=== PATIENT | male | born 1970 | race Caucasian/White ===

== ENCOUNTER 2016-05-25 15:29 | Emergency (ER) | payer OTHER ==
[~2016-05-25] VITALS: Ht 167.6 cm; Wt 70.0 kg
[2016-05-25 15:31] VITALS: BP 132/75; PULSE 82; RESP 15; TEMP 97.9; O2SAT 99
[2016-05-25 18:32] LABS: AUTOMATED NEUTROPHIL # 3.9 TH/MM3 (1.8-7.7); BASOPHIL # 0.1 TH/MM3 (0-0.2); BASOPHIL % 0.8 % (0.0-2.0); EOSINOPHIL # 0.2 TH/MM3 (0-0.4); EOSINOPHIL % 2.9 % (0.0-4.0); HEMATOCRIT 42.6 % (39.0-51.0); HEMO FLAGS DIFF FINAL; MEAN CELL VOLUME 89.3 FL (80.0-100.0); MEAN CORPUSCULAR HEMOGLOBIN 30.4 PG (27.0-34.0); MONO % 7.2 % (0.0-8.0); NEUT % 50.1 % (16.0-70.0); PLATELET COUNT 349 TH/MM3 (150-450); RED BLOOD COUNT 4.78 MIL/MM3 (4.50-5.90); RED CELL DISTRIBUTION WIDTH 13.5 % (11.6-17.2); WHITE BLOOD COUNT 7.8 TH/MM3 (4.0-11.0)
--- NOTE | 2016-05-25 18:32 | PD ---
HPI Chief Complaint: Medical Clearance Time Seen by Provider: 18:25 Travel History International Travel<30 days: No Contact w/Intl Traveler<30days: No Traveled to known affect area: No History of Present Illness HPI 46-year-old male that presents to the ED for evaluation of medical clearance. Patient is hard to assess patient appears to be some sort psychosis. Patient main concern is that he might have HIV and he wants HIV testing. Patient for medical records has been here for similar in the past. Per patient he tells me that the reason he is concerned about HIV having AIDS is because he was called a "fag" and someone is telling him that he is "dirty". Per patient he takes no medications. Per patient he went to the health department about 3 months ago he was told that he needed to get testing every 3 months. Patient comes here to get evaluated for this. He also tells me that he believes that he got the HIV because he sure food with another individual that he per patient "I did not washed my hands afterwords as a I did not knew he had HIV ". Patient also goes into tangents about people were attacking him and follow there is actually a documentary on his life because apparently he has some mental knox. In essence most of the story appears to be paranoia. Patient has been here before for similar but he has never had a psychiatric evaluation. Patient denies any homicidal or suicidal ideation to me. He does state that he used to use drugs but he is not specific. Again patient goes into a low tangents. PFSH Past Medical History Cardiovascular Problems: Yes Social History Alcohol Use: Yes (often) Tobacco Use: No Substance Use: Yes (marijuana) Allergies-Medications (Allergen,Severity, Reaction): Coded Allergies: Penicillin (Verified Allergy, Unknown, 05/25/16) Reported Meds & Prescriptions Reported Meds & Active Scripts Active No Active Prescriptions or Reported Medications Review of Systems Except as stated in HPI: all other systems reviewed are Neg Physical Exam Narrative GENERAL: SKIN: Warm and dry. HEAD: Atraumatic. Normocephalic. EYES: Pupils equal and round. No scleral icterus. No injection or drainage. ENT: No nasal bleeding or discharge. Mucous membranes pink and moist. Tongue is midline. No uvula deviation. NECK: Trachea midline. No JVD. CARDIOVASCULAR: Regular rate and rhythm. RESPIRATORY: No accessory muscle use. Clear to auscultation. Breath sounds equal bilaterally. GASTROINTESTINAL: Abdomen soft, non-tender, nondistended. Hepatic and splenic margins not palpable. MUSCULOSKELETAL: Extremities without clubbing, cyanosis, or edema. No obvious deformities. Full range of motion of the upper and lower extremities bilaterally. 2+ pulses bilaterally. NEUROLOGICAL: Awake and alert. No obvious cranial nerve deficits. Motor grossly within normal limits. Five out of 5 muscle strength in the arms and legs. Normal speech. PSYCHIATRIC: psychotic mood and affect; insight and judgment questionable. Data Data Last Documented VS Vital Signs Date Time Temp Pulse Resp B/P Pulse Ox O2 Delivery O2 Flow Rate FiO2 05/25/16 15:31 97.9 82 15 132/75 99 Orders Complete Blood Count With Diff (05/25/16 17:55) Comprehensive Metabolic Panel (05/25/16 17:55) Drug Screen, Random Urine (05/25/16 17:55) Psych Screen (05/25/16 17:55) Thyroid Stimulating Hormone (05/25/16 17:58) Thyroid Stimulating Hormone (05/25/16 17:55) Labs Laboratory Tests Test 05/25/16 18:05 White Blood Count 7.8 TH/MM3 Red Blood Count 4.78 MIL/MM3 Hemoglobin 14.5 GM/DL Hematocrit 42.6 % Mean Corpuscular Volume 89.3 FL Mean Corpuscular Hemoglobin 30.4 PG Mean Corpuscular Hemoglobin 34.0 % Concent Red Cell Distribution Width 13.5 % Platelet Count 349 TH/MM3 Mean Platelet Volume 7.7 FL Neutrophils (%) (Auto) 50.1 % Lymphocytes (%) (Auto) 39.0 % Monocytes (%) (Auto) 7.2 % Eosinophils (%) (Auto) 2.9 % Basophils (%) (Auto) 0.8 % Neutrophils # (Auto) 3.9 TH/MM3 Lymphocytes # (Auto) 3.0 TH/MM3 Monocytes # (Auto) 0.6 TH/MM3 Eosinophils # (Auto) 0.2 TH/MM3 Basophils # (Auto) 0.1 TH/MM3 CBC Comment DIFF FINAL Differential Comment Sodium Level 142 MEQ/L Potassium Level 3.9 MEQ/L Chloride Level 106 MEQ/L Carbon Dioxide Level 28.6 MEQ/L Anion Gap 7 MEQ/L Blood Urea Nitrogen 17 MG/DL Creatinine 0.74 MG/DL Estimat Glomerular Filtration 115 ML/MIN Rate Random Glucose 80 MG/DL Calcium Level 8.7 MG/DL Total Bilirubin 0.4 MG/DL Aspartate Amino Transf 17 U/L (AST/SGOT) Alanine Aminotransferase 21 U/L (ALT/SGPT) Alkaline Phosphatase 77 U/L Total Protein 7.8 GM/DL Albumin 3.8 GM/DL Thyroid Stimulating Hormone 1.570 uIU/ML 3rd Gen [facility] Medical Decision Making Medical Screen Exam Complete: Yes Emergency Medical Condition: Yes Medical Record Reviewed: Yes Interpretation(s) CBC & BMP Diagram 05/25/16 18:05 TSH WNL Differential Diagnosis HIV testing versus malingering versus paranoia versus Depression versus suicidal ideation versus anxiety versus adjustment disorder versus mood disorder versus bipolar disorder versus schizophrenia versus paranoid disorder versus psychosis versus substance abuse versus alcohol abuse versus alcohol induced psychosis versus homicidality addition versus cutting versus personality disorder Narrative Course 46-year-old male that presents to the ED for evaluation of HIV testing. Patient was properly examined and was found to have signs and symptoms appear to be consistent with schizophrenia likely paranoia. I do not see any need for HIV testing patient does not appear to have any need for it. After discussing the case with my attending who both agreed the patient likely requires psych evaluation. Labs and psych screening were ordered. Patient was medically cleared. Okay to be seen by psych. Before seen by psych, patient became very agitated and aggressive towards staff. Patient was Gaffney acted for his safety as I do not believe that patient is of sound mind at this time and without proper care he could hurt himself or someone else. Mental health screening was discussed with the patient. Diagnosis Primary Impression: Psychosis Qualified Code: F29 - Psychosis, unspecified psychosis type Scripts No Active Prescriptions or Reported Meds Chester Stein May 25, 2016 18:32
[2016-05-25 19:03] LABS: ANION GAP 7 MEQ/L (5-15); AST (GOT) 17 U/L (15-37); BICARBONATE 28.6 MEQ/L (21.0-32.0); BLOOD UREA NITROGEN 17 MG/DL (7-18); CHLORIDE 106 MEQ/L (98-107); GLOMERULAR FILTRATION RATE 115 ML/MIN (>89); POTASSIUM 3.9 MEQ/L (3.5-5.1); SODIUM (NA) 142 MEQ/L (136-145)
[2016-05-25 19:14] LABS: ALKALINE PHOSPHATASE 77 U/L (45-117); ALT (GPT) 21 U/L (12-78); TOTAL BILIRUBIN ADULT 0.4 MG/DL (0.2-1.0)
[2016-05-25 21:01] VITALS: BP 139/87; PULSE 62; RESP 18; O2SAT 97
[2016-05-26 01:54] VITALS: BP 105/56; PULSE 55; RESP 19; O2SAT 100
[2016-05-26 06:21] VITALS: BP 120/61; PULSE 57; RESP 18; O2SAT 98
[2016-05-26 07:28] LABS: AMPHETAMINE, URINE NEG (NEG); BARBITURATES, URINE NEG (NEG); COCAINE, URINE NEG (NEG)
[2016-05-26 11:22] VITALS: BP 140/81; PULSE 75; RESP 18; O2SAT 98
--- NOTE | 2016-05-26 12:36 | MB ---
cc: ZACK MIX MD DATE OF CONSULTATION: 05/26/2016 REQUESTING PHYSICIAN: Emergency department REASON FOR CONSULTATION: Gaffney Act HISTORY OF PRESENT ILLNESS: Mr. Chery is a 46 year-old male with no reported past psychiatric history who presented initially to the emergency department for somatic issues. He was primarily concerned about having HIV. The PA in the ED astutely noticed that this concern seemed to have a psychotic basis and that there were other features of psychosis and placed the patient under a Gaffney Act for psychiatric evaluation. Reviewing the electronic medical record, I see no prior psychiatric contact within our system although the patient has been seen for medical issues in the past. The patient seen and examined. The case discussed with nursing staff in the J pod. The patient has apparently been fairly calm although he did grow a little bit agitated this morning when he learned that he would not be evaluated immediately by the psychiatrist but would rather have to wait his turn. On my examination today, the patient cannot seem to help himself and keeps disclosing more and more psychotic material. He says first that he is connected to the spirit world. He goes onto say that he is "a medial spirit" and is in constant communication with spirits. He will not say exactly what they are saying but in context it seems like these might be command in nature. He also says he is involved in some sort of government program and has been cleared by the government to carry a weapon. He also believes that there are several people that are out to kill him. He won't tell me who exactly and he intimates that he might retaliate against these people or at the very least try to kill them in what he perceives as self defense. He denies any suicidal or homicidal ideation just now. He appears frankly internally stimulated. He is disheveled. He is somewhat dysphoric and irritable. The remainder of the psychiatric ROS is negative. PAST PSYCHIATRIC HISTORY: The patient repeatedly and insistently says that he was "deemed fit" at a variety of different mental institutions in the [place]. Whenever I ask him about his psychiatric diagnosis, outpatient psychiatric are, admissions or suicide attempt, he will only repeat that he is "deemed fit." FAMILY HISTORY: He says that his family is not in fact his real family. He, therefore, does not know what he perceives as his true family psychiatric history. Chemical dependency history: The patient reports that he uses occasional marijuana for the management of his hyperglycemia. SOCIAL HISTORY The patient is presently without stable housing. He is high school educated. 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 He has children. He endorses a history trespassing charges but denies any other legal issues. He denies access to guns or firearms but says that he was given permission by the government carry a knife. PAST MEDICAL HISTORY Includes per patient report, a history of hyperglycemia. The patient's glucose was within normal limits here. REVIEW OF SYSTEMS No reported headache, vision or hearing changes, chest pain, shortness of breath, bowel or bladder issues. No other somatic complaints. PHYSICAL EXAMINATION Physical examination was completed in the emergency room by the ER staff and the patient was medically cleared. On my examination today, the patient appears to be in no acute physical distress. No signs of intoxication or withdrawal noted. No abnormal motor movements noted. MENTAL STATUS EXAMINATION: The patient is in hospital [facility]. He is somewhat disheveled but appears to be maintaining basic hygiene. He has a cross tattoo on his right forearm and a shamrock tattoo on his left breast. He is awake, alert and oriented to person and hospital at least. No abnormal motor movements noted. Speech is within normal limits for rate, tone and volume. Language and fund of knowledge seem average for age. Mood is dysphoric and affect is irritable. Thought process linear within delusional system. No loosening of associations. Prominent paranoia is present. Appears internally stimulated and says that he is communicating with the spirit world. No other hallucinatory material. He also appears to have a capgras regarding his family. Denies suicidal or homicidal ideation at this time but says that he believes that they are several people out to kill him in he might retaliate against them first. He won't say who. Insight and judgment are poor. ASSESSMENT/PLAN 1. Paranoid schizophrenia, acute exacerbation. This is a 46-year-old male with psychiatric history as detailed above who presented initially to the ED for somatic complaints and was subsequently placed under the Gfafney Act. I had initially hoped to lift the Gaffney Act and discharge the patient as he has been no real behavioral problem, but on my examination, the patient seemed unable to contain his paranoid delusions and elaborated extensive notions of being in collusion with the government and in communication with the spirit world. Perhaps most concerningly, the patient believes that there are people out to kill him and says that he might retaliate first. I think there are, therefore, real concerns about safety of others at play here. I note that the ED provider initiated a Gaffney Act but neglected to fill it out completely. I will, therefore, complete a type inspector Act and place it on the chart to ensure that the patient has a valid Gaffney Act in place. The patient will be retained in the J pod until he can be transferred for inpatient psychiatric services at [facility]. The case discussed with the RN in the J pod. Thank you very much for this consultation. Zack Mix DC/DIANE /10:28 AM /12:20 PM RODDY
[2016-05-26 15:00] VITALS: BP 130/58; PULSE 80; RESP 18; O2SAT 100
[2016-05-26 18:18] VITALS: BP 138/79; PULSE 76; RESP 20; O2SAT 98
== END 2016-05-26 21:54 ==
LOC: NEPC 15:29 → NEPJ 05-26 21:54
DX: F29 Unspecified psychosis not due to a substance or known physiological condition (principal)
CPT/HCPCS: 80053; 80307; 84443; 85025; 99283

== ENCOUNTER 2016-07-31 10:42 | Inpatient (IN) | payer OTHER ==
[~2016-07-31] VITALS: Ht 165.1 cm; Wt 64.3 kg
[2016-07-31 11:08] VITALS: BP_SYST 132; BP_SYST 135; BP_DIAS 78; PULSE 82; PULSE 98; RESP 18; TEMP 97.9; O2SAT 98
[2016-07-31] MEDS ORDERED: HALOPERIDOL LACTATE 5 MG/ML AMP IV PUSH ONE (11:15)
[2016-07-31 11:28] LABS: AUTOMATED NEUTROPHIL # 4.2 TH/MM3 (1.8-7.7); BASOPHIL # 0.1 TH/MM3 (0-0.2); BASOPHIL % 1.2 % (0.0-2.0); EOSINOPHIL # 0.1 TH/MM3 (0-0.4); EOSINOPHIL % 1.9 % (0.0-4.0); HEMATOCRIT 41.6 % (39.0-51.0); HEMO FLAGS DIFF FINAL; LYMPH % 28.8 % (9.0-44.0); MEAN CELL VOLUME 89.8 FL (80.0-100.0); MEAN CORPUSCULAR HEMOGLOBIN 29.9 PG (27.0-34.0); MEAN CORPUSCULAR HGB CONC 33.3 % (32.0-36.0); MONO % 7.1 % (0.0-8.0); PLATELET COUNT 304 TH/MM3 (150-450); RED BLOOD COUNT 4.63 MIL/MM3 (4.50-5.90); RED CELL DISTRIBUTION WIDTH 13.2 % (11.6-17.2); WHITE BLOOD COUNT 6.8 TH/MM3 (4.0-11.0)
[2016-07-31 11:30] LABS: AMPHETAMINE, URINE NEG (NEG); BARBITURATES, URINE NEG (NEG); COCAINE, URINE NEG (NEG)
--- NOTE | 2016-07-31 11:33 | PD ---
HPI Chief Complaint: Psychiatric Symptoms Time Seen by Provider: 10:52 Travel History International Travel<30 days: No Contact w/Intl Traveler<30days: No Traveled to known affect area: No History of Present Illness HPI This is a 46-year-old male who has a history of paranoid schizophrenia who presents to the emergency department being brought in under a Gaffney act because he was yelling at security cameras at an intersection. Patient doesn't provide much linear history. He reports that he's been drinking "embalming fluid" and that he is a [place] and communicates with spirits. He says the Pres. Obama is involved in protecting him because he knows that he is not a danger to himself. He does frequently mentions Julien Doe. PFSH Past Medical History Cardiovascular Problems: Yes Psychiatric: Yes (denies) Myocardial Infarction: Yes Tetanus Vaccination: < 5 Years Past Surgical History Abdominal Surgery: Yes (hernia) Social History Alcohol Use: Yes (often) Tobacco Use: No Substance Use: Yes (marijuana) Allergies-Medications (Allergen,Severity, Reaction): Coded Allergies: Penicillin (Verified Allergy, Unknown, 05/25/16) Reported Meds & Prescriptions Reported Meds & Active Scripts Active No Active Prescriptions or Reported Medications Review of Systems ROS Limitations: Psychotic Physical Exam Narrative GENERAL:Well appearing, no acute distress SKIN: Warm and dry. HEAD: Atraumatic. Normocephalic. EYES: Pupils equal and round. No injection or drainage. ENT: Moist mucous membranes NECK: Trachea midline. CARDIOVASCULAR: Regular rate and rhythm. No murmur appreciated. RESPIRATORY: Clear to auscultation. Breath sounds equal bilaterally. GASTROINTESTINAL: Abdomen soft, non-tender, nondistended. MUSCULOSKELETAL: No obvious deformities. NEUROLOGICAL: Awake and alert. No obvious cranial nerve deficits. Moving all extremities. PSYCHIATRIC: Disorganized, psychotic, paranoid delusions, tangential Data Data Last Documented VS Vital Signs Date Time Temp Pulse Resp B/P Pulse Ox O2 Delivery O2 Flow Rate FiO2 07/31/16 13:43 98.2 72 20 140/80 99 Orders Complete Blood Count With Diff (07/31/16 10:52) Comprehensive Metabolic Panel (07/31/16 10:52) ^ Insert Iv (07/31/16 10:52) Drug Screen, Random Urine (07/31/16 10:52) Alcohol (Ethanol) (07/31/16 10:52) Haloperidol Inj (Haldol Inj) (07/31/16 11:15) Psych Screen (07/31/16 11:14) Diet Regular Basic (07/31/16 Lunch) Labs Laboratory Tests Test 07/31/16 07/31/16 10:45 11:20 Urine Opiates Screen NEG Urine Barbiturates Screen NEG Urine Amphetamines Screen NEG Urine Benzodiazepines Screen NEG Urine Cocaine Screen NEG Urine Cannabinoids Screen NEG White Blood Count 6.8 TH/MM3 Red Blood Count 4.63 MIL/MM3 Hemoglobin 13.8 GM/DL Hematocrit 41.6 % Mean Corpuscular Volume 89.8 FL Mean Corpuscular Hemoglobin 29.9 PG Mean Corpuscular Hemoglobin 33.3 % Concent Red Cell Distribution Width 13.2 % Platelet Count 304 TH/MM3 Mean Platelet Volume 7.3 FL Neutrophils (%) (Auto) 61.0 % Lymphocytes (%) (Auto) 28.8 % Monocytes (%) (Auto) 7.1 % Eosinophils (%) (Auto) 1.9 % Basophils (%) (Auto) 1.2 % Neutrophils # (Auto) 4.2 TH/MM3 Lymphocytes # (Auto) 2.0 TH/MM3 Monocytes # (Auto) 0.5 TH/MM3 Eosinophils # (Auto) 0.1 TH/MM3 Basophils # (Auto) 0.1 TH/MM3 CBC Comment DIFF FINAL Differential Comment Sodium Level 141 MEQ/L Potassium Level 3.8 MEQ/L Chloride Level 105 MEQ/L Carbon Dioxide Level 28.2 MEQ/L Anion Gap 8 MEQ/L Blood Urea Nitrogen 20 MG/DL Creatinine 0.67 MG/DL Estimat Glomerular Filtration 129 ML/MIN Rate Random Glucose 90 MG/DL Calcium Level 8.2 MG/DL Total Bilirubin 0.3 MG/DL Aspartate Amino Transf 22 U/L (AST/SGOT) Alanine Aminotransferase 30 U/L (ALT/SGPT) Alkaline Phosphatase 75 U/L Total Protein 7.3 GM/DL Albumin 3.5 GM/DL Ethyl Alcohol Level LESS THAN 3 MG/DL [facility] Medical Decision Making Medical Screen Exam Complete: Yes Emergency Medical Condition: Yes Interpretation(s) No leukocytosis Electrolytes are reassuring Drug screen is negative Alcohol negative Differential Diagnosis Paranoid schizophrenia, alcohol intoxication, drug intoxication, substance induced psychosis Narrative Course This is a 46-year-old male who presents to the emergency department with acute psychosis. The patient is talking about drinking embalming fluid and talking about spirits but is very disorganized and can answer question appropriately without going onto tangents. He presented similarly in May. He has a history of paranoid schizophrenia. Labs are all reassuring. Patient will be admitted psychiatrically. Scripts No Active Prescriptions or Reported Meds Vilma Gaxiola MD Jul 31, 2016 11:33
[2016-07-31 11:40] LABS: ANION GAP 8 MEQ/L (5-15); BICARBONATE 28.2 MEQ/L (21.0-32.0); BLOOD UREA NITROGEN 20 MG/DL (7-18); CHLORIDE 105 MEQ/L (98-107); POTASSIUM 3.8 MEQ/L (3.5-5.1); SODIUM (NA) 141 MEQ/L (136-145)
[2016-07-31 11:51] LABS: ALKALINE PHOSPHATASE 75 U/L (45-117); ALT (GPT) 30 U/L (12-78); AST (GOT) 22 U/L (15-37); GLOMERULAR FILTRATION RATE 129 ML/MIN (>89); TOTAL BILIRUBIN ADULT 0.3 MG/DL (0.2-1.0)
[2016-07-31 13:19] VITALS: BP 132/74
[2016-07-31 13:43] VITALS: BP 140/80; PULSE 72; RESP 20; TEMP 98.2; O2SAT 99
[2016-07-31] MEDS ORDERED: diphenhydrAMINE HCL 50 MG/ML VIAL IM PRN (15:00)
[2016-07-31] MEDS ORDERED: ACETAMINOPHEN 325 MG TAB PO PRN (15:00)
[2016-07-31] MEDS ORDERED: diphenhydrAMINE HCL 50 MG CAP PO PRN ×2 (15:00)
[2016-07-31] MEDS ORDERED: ALUMINUM/MAGNESIUM/SIMETH 30 ML CUP PO PRN (15:00)
[2016-07-31] MEDS ORDERED: MAGNESIUM HYDROXIDE SUSP 30 ML CUP PO PRN (15:00)
[2016-07-31] MEDS ORDERED: LORazepam 1 MG TAB PO PRN (15:00)
[2016-07-31] MEDS ORDERED: LORazepam 2 MG/ML VIAL IM PRN (15:00)
[2016-07-31 18:33] VITALS: BP 140/80; PULSE 72; RESP 20; O2SAT 99
[2016-07-31 18:34] VITALS: BP 141/69; PULSE 71; RESP 18; O2SAT 99
[2016-07-31 20:17] VITALS: BP 127/66; PULSE 68; RESP 18; TEMP 98.2; O2SAT 99
[2016-07-31] MEDS ORDERED: HALOPERIDOL LACTATE 5 MG/ML AMP IM ONE (21:45)
[2016-07-31] MEDS ORDERED: LORazepam 2 MG/ML VIAL IM ONE (21:45)
[2016-08-01 08:18] LABS: HDL CHOLESTEROL 63.2 MG/DL (40.0-60.0); LDL CHOLESTEROL 93 MG/DL (0-99)
[2016-08-01] MEDS ORDERED: LORazepam 2 MG TAB PO PRN (08:45)
[2016-08-01] MEDS ORDERED: LORazepam 2 MG/ML VIAL IM PRN ×4 (08:45)
[2016-08-01] MEDS ORDERED: LORazepam 1 MG TAB PO PRN (08:45)
[2016-08-01] MEDS ORDERED: FLUMAZENIL 0.5 MG/5 ML VIAL IV PUSH PRN (08:45)
[2016-08-01] MEDS: NICOTINE 21 MG/24 HR PATCH T-DERMAL SCH (09:00)
[2016-08-01] MEDS: THIAMINE HCL 100 MG TAB PO SCH (09:00)
[2016-08-01] MEDS: REMOVE OLD PATCH T-DERMAL SCH (09:00)
[2016-08-01] MEDS: FOLIC ACID 1 MG TAB PO SCH (09:00)
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
[2016-08-01 16:40] LABS: HEMOGLOBIN A1a 1.2 %; HEMOGLOBIN A1b 1.5 %; HEMOGLOBIN Ao 86.1 %; HEMOGLOBIN LA1C 1.9 %; HEMOGLOBIN P3 3.4 %
[2016-08-01 17:25] VITALS: BP 101/66; PULSE 71; RESP 16; TEMP 98.3; O2SAT 99
[2016-08-01] MEDS: EUCERIN CREAM 120 GM JAR TOPICAL SCH (20:58)
[2016-08-02 06:04] VITALS: BP 108/57; PULSE 77; RESP 18; TEMP 98; O2SAT 98
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
[2016-08-02] MEDS: EUCERIN CREAM 120 GM JAR TOPICAL SCH ×2 (09:00→21:00)
[2016-08-02] MEDS: THIAMINE HCL 100 MG TAB PO SCH (09:00)
[2016-08-02] MEDS: FOLIC ACID 1 MG TAB PO SCH (09:00)
[2016-08-02] MEDS: NICOTINE 21 MG/24 HR PATCH T-DERMAL SCH (09:00)
[2016-08-02] MEDS: REMOVE OLD PATCH T-DERMAL SCH (09:00)
--- NOTE | 2016-08-02 10:36 | HHI.PYPN ---
Subjective Remarks Patient continues to respond to internal stimuli. He remains very paranoid. He is easily agitated. Medications do not appear to have been helpful yet, but it is early. He feels he is recording activities on the unit. Review of Systems ROS Limitations: Clinical Condition Except as stated in HPI: all other systems reviewed are Neg Objective Alert: Yes [place]: Person, Place, Date, Situation Mood: Anxious Affect: Restricted Memory Intact: Immediate, Recent, Remote Hallucinations: Auditory Delusions: Yes Delusion Type: Paranoid Suicidal: Ideation Homicidal: Ideation Insight/Judgement Significantly impaired. Vitals/IOs Vital Signs Date Time Temp Pulse Resp B/P Pulse Ox O2 Delivery O2 Flow Rate FiO2 08/02/16 06:04 98.0 77 18 108/57 98 07/31/16 18:34 Room Air Assessment & Plan Problem List: (1) Schizophrenia, paranoid, chronic ICD Code: F20.0 (2) Psychosis ICD Code: F29 Assessment & Plan Estimated LOS: 6 days patient needs continuous observation and evaluation for the appropriateness and effectiveness of his antipsychotic medicine. It is likely he will need a titration over the next several days. Justification for Cont. Inpt. He is unable to care for himself and is actively hallucinating. Request HC Surrog/Guard Advoc?: Yes Problem Qualifiers (1) Psychosis: Qualified Code: F20.0 - Paranoid schizophrenia Juancarlos Richardson MD Aug 02, 2016 10:36
[2016-08-02 17:12] VITALS: BP 118/58; PULSE 72; RESP 18; TEMP 98.3; O2SAT 99
[2016-08-03 05:54] VITALS: BP 128/82; PULSE 65; RESP 20; TEMP 98.4; O2SAT 97
[2016-08-03] MEDS: FOLIC ACID 1 MG TAB PO SCH (08:54)
[2016-08-03] MEDS: EUCERIN CREAM 120 GM JAR TOPICAL SCH ×2 (08:54→21:00)
[2016-08-03] MEDS: THIAMINE HCL 100 MG TAB PO SCH (08:54)
[2016-08-03] MEDS ORDERED: diphenhydrAMINE HCL 50 MG/ML VIAL ONE (17:15)
[2016-08-03] MEDS ORDERED: OLANZapine IM 10 MG VIAL IM ONE ×2 (17:15→17:30)
--- NOTE | 2016-08-03 17:21 | HHI.PYPN ---
Subjective Remarks Patient was seen and case discussed with nursing. Patient is angry, irritable, yelling and threatening. He was put in the short rice and given an ETO of Zyprexa 10 mg, Ativan 2 mg and Benadryl 50 mg. Patient has a bizarre perseveration that he does not need medication. However when told he is not a medication of the time he does not get it and just repeats that he does not need medication and he demands that I believe his story that he does not and his admission is secondary to misunderstanding. Objective Alert: Yes [place]: Person, Place Mood: Agitated, Angry Affect: Labile Memory Intact: Immediate, Recent, Remote Hallucinations: Auditory (would not answer) Delusions: Yes Delusion Type: Paranoid (patient has bizarre delusions that he is a medium) Suicidal: Ideation (denies) Homicidal: Ideation (denies) Insight/Judgement Poor Vitals/IOs Vital Signs Date Time Temp Pulse Resp B/P Pulse Ox O2 Delivery O2 Flow Rate FiO2 08/03/16 05:54 98.4 65 20 128/82 97 07/31/16 18:34 Room Air Assessment & Plan Problem List: (1) Schizophrenia, paranoid, chronic ICD Code: F20.0 (2) Psychosis ICD Code: F29 Assessment & Plan Administer eto. Justification for Cont. Inpt. Patient will decompensate in a less restrictive setting Request HC Surrog/Guard Advoc?: Yes Problem Qualifiers (1) Psychosis: Qualified Code: F20.0 - Paranoid schizophrenia Elvin Meier DO Aug 03, 2016 17:21
[2016-08-03] MEDS ORDERED: diphenhydrAMINE HCL 50 MG/ML VIAL IM ONE (17:30)
[2016-08-03] MEDS ORDERED: LORazepam 2 MG/ML VIAL IM ONE (17:30)
[2016-08-03 18:57] VITALS: BP 128/56; PULSE 62; RESP 18; TEMP 98.1; O2SAT 95
[2016-08-04 06:46] VITALS: BP 119/64; PULSE 78; RESP 18; TEMP 97.6; O2SAT 99
[2016-08-04] MEDS: THIAMINE HCL 100 MG TAB PO SCH (08:10)
[2016-08-04] MEDS: FOLIC ACID 1 MG TAB PO SCH (08:10)
[2016-08-04] MEDS: EUCERIN CREAM 120 GM JAR TOPICAL SCH ×2 (08:10→21:12)
--- NOTE | 2016-08-04 14:19 | HHI.PYPN ---
Subjective Remarks Patient was seen and case discussed with nursing. Patient remains with no medication at this time. Compared to yesterday patient is less perseverative. He does attempt to focus on his version of the story and that he does not need medication but he was able to be redirected today and did not perseverate after the interview. No other ETO's had to be given. Maintain psychotic thinking that he is a medium receiving various messages Objective Alert: Yes [place]: Person, Place Mood: Oppositional Affect: Labile, Other (perseverative) Memory Intact: Immediate, Recent, Remote Hallucinations: Auditory (yarsanism messages) Delusions: Yes Delusion Type: Paranoid (patient has bizarre delusions that he is a medium) Suicidal: Ideation (denies) Homicidal: Ideation (denies) Insight/Judgement Poor Vitals/IOs Vital Signs Date Time Temp Pulse Resp B/P Pulse Ox O2 Delivery O2 Flow Rate FiO2 08/04/16 06:46 97.6 78 18 119/64 99 07/31/16 18:34 Room Air Assessment & Plan Problem List: (1) Schizophrenia, paranoid, chronic ICD Code: F20.0 (2) Psychosis ICD Code: F29 Assessment & Plan Continue current treatment plan Justification for Cont. Inpt. Patient will decompensate in a less restrictive setting Request HC Surrog/Guard Advoc?: Yes Problem Qualifiers (1) Psychosis: Qualified Code: F20.0 - Paranoid schizophrenia Elvin Meier DO Aug 04, 2016 14:19
[2016-08-04 18:03] VITALS: BP 114/59; PULSE 68; RESP 18; TEMP 98.2; O2SAT 100
[2016-08-05 06:00] VITALS: BP 98/53; PULSE 58; RESP 18; TEMP 97.6; O2SAT 98
[2016-08-05] MEDS: EUCERIN CREAM 120 GM JAR TOPICAL SCH ×2 (09:00→20:20)
[2016-08-05] MEDS: FOLIC ACID 1 MG TAB PO SCH (09:00)
[2016-08-05] MEDS: THIAMINE HCL 100 MG TAB PO SCH (09:00)
--- NOTE | 2016-08-05 10:12 | HHI.PYPN ---
Subjective Remarks Patient seen and examined with nurse. Chart reviewed. Case discussed with nursing staff who reports that the patient has been very difficult and angry on the unit. He is perseverative and yelling about medications. On my examination today, the patient insists "I'm not suicidal. I don't want to hurt myself or others." Despite this, he is irritable and easily agitated. He insists "the government issued me a weapon. Grace said I could have a weapon. I don't take psych pills because I'm not allowed to live!" He insists that he is "a medial spirit. I'm connected to the spirits all of the time." When I explain that I believe that he has a mental illness and would benefit from psychotropics, he becomes increasingly agitated and threatening, pursuing me out from his room into the day area yelling, "Fuck! I was deemed fit!" He is able to finally be redirected by staff. Review of Systems ROS Limitations: Psychotic, Poor Historian Other No physical complaints today. Objective Alert: Yes [place]: Person, Place (at least) Mood: Agitated, Angry, Oppositional Affect: Labile Memory Intact: Comment (Not formally assessed) Hallucinations: Other (Continues to receive messages, currently from gov't and spirit world) Delusions: Yes Delusion Type: Grandiose (of being a gov't agent), Paranoid (of being a spirit medium) Suicidal: Ideation (Denies SI) Homicidal: Ideation (Denies HI but quite irascible) Insight/Judgement Poor Remarks No abnormal motor movements noted. Speech rambling. Thought process perseverative on delusional themes. No signs of any GABAergic withdrawal noted. Labs Labs reviewed. No new labs. Vitals/IOs Vital Signs Date Time Temp Pulse Resp B/P Pulse Ox O2 Delivery O2 Flow Rate FiO2 08/05/16 06:00 97.6 58 18 98/53 98 Assessment & Plan Problem List: (1) Schizophrenia, paranoid, chronic Assessment & Plan: with exacerbation. ICD Code: F20.0 Assessment & Plan Patient remains severely psychotic and easily irritated. He would almost certainly benefit from psychotropic medications, but he is not capacitated to consent for medications and we do not have anyone to act as health care surrogate. We will thus have to wait for [facility] on . Continue to monitor on the inpatient unit in the meantime. Discontinue CIWA as the patient has had no signs of withdrawal despite several days of observation. Continue other medications and care as ordered. Justification for Cont. Inpt. Impairments in safety secondary to psychotic agitation. Impairments in self- care. Impairments in reality construction. Impairments in social function. High risk for decompensation in a less restrictive environment. Discharge Planning Pending outcome of [address] . Request HC Surrog/Guard Advoc?: Yes Zack Mix MD Aug 05, 2016 10:12
[2016-08-05 17:48] VITALS: BP 132/65; PULSE 72; RESP 18; TEMP 98.3; O2SAT 100
[2016-08-06 05:52] VITALS: BP 118/77; PULSE 69; RESP 18; TEMP 97.5; O2SAT 100
[2016-08-06] MEDS: THIAMINE HCL 100 MG TAB PO SCH (08:19)
[2016-08-06] MEDS: FOLIC ACID 1 MG TAB PO SCH (08:19)
[2016-08-06] MEDS: EUCERIN CREAM 120 GM JAR TOPICAL SCH ×2 (08:19→21:00)
--- NOTE | 2016-08-06 12:57 | HHI.PYPN ---
Subjective Remarks Patient seen and examined. Chart reviewed. Case discussed in treatment team with nurse, counselor and recreation therapist. Per nursing staff, patient is frankly internally stimulated and talking openly with himself. He is also fixated on food and in particular the butter that he brought in with him. Recreational therapist's notes that there has been minimal interaction. On my examination today, I find the patient in the day area. He is somewhat intrusive. He is having an animated conversation with some unseen interlocutor. When I engage with him, the patient says "I will defend myself. I was instructed to carry a weapon by Obama himself." Insight into mental illness remains poor. Patient is requesting that his diet be liberalized. Review of Systems ROS Limitations: Psychotic, Poor Historian Other No physical complaints today Objective Alert: Yes [place]: Person, Place (at least) Mood: Agitated Affect: Blunted Memory Intact: Comment (Not formally assessed) Hallucinations: Other (Remains frankly internally stimulated) Delusions: Yes Delusion Type: Grandiose, Paranoid Suicidal: Ideation (No SI) Homicidal: Ideation (No HI) Insight/Judgement Poor Remarks Grooming and hygiene fair. No motoric abnormalities noted. Labs Labs reviewed. No new labs. Vitals/IOs Vital Signs Date Time Temp Pulse Resp B/P Pulse Ox O2 Delivery O2 Flow Rate FiO2 08/06/16 05:52 97.5 69 18 118/77 100 Assessment & Plan Problem List: (1) Schizophrenia, paranoid, chronic ICD Code: F20.0 Assessment & Plan Awaiting outcome of [facility] [address] and appointment of a guardian advocate for any medications. I will liberalize patient's diet as he asks. Continue to monitor on the inpatient unit. Continue other medications and care as ordered. Justification for Cont. Inpt. Impairment in reality construction. High risk for decompensation in a less restrictive environment. Discharge Planning Pending outcome a [facility] Request HC Surrog/Guard Advoc?: Yes Zack Mix MD Aug 06, 2016 12:57
[2016-08-06 18:08] VITALS: BP 145/68; PULSE 81; RESP 18; TEMP 98.1; O2SAT 96
[2016-08-06] MEDS ORDERED: OLANZapine IM 10 MG VIAL IM STA (18:21)
[2016-08-06] MEDS ORDERED: diphenhydrAMINE HCL 50 MG/ML VIAL ONE (18:21)
[2016-08-06] MEDS ORDERED: diphenhydrAMINE HCL 50 MG/ML VIAL IM STA (18:21)
[2016-08-06] MEDS ORDERED: LORazepam 2 MG/ML VIAL ONE (18:21)
[2016-08-06] MEDS ORDERED: LORazepam 2 MG/ML VIAL IM STA (18:21)
[2016-08-06] MEDS ORDERED: OLANZapine IM 10 MG VIAL IM ONE (18:22)
[2016-08-07 06:16] VITALS: BP 106/57; PULSE 57; RESP 17; TEMP 97.4; O2SAT 97
[2016-08-07] MEDS: EUCERIN CREAM 120 GM JAR TOPICAL SCH ×2 (09:00→20:37)
[2016-08-07] MEDS: FOLIC ACID 1 MG TAB PO SCH (09:00)
[2016-08-07] MEDS: THIAMINE HCL 100 MG TAB PO SCH (09:00)
--- NOTE | 2016-08-07 10:47 | HHI.PYPN ---
Subjective Remarks Patient seen and examined. Chart reviewed. Case discussed with nursing staff. Patient was agitated yesterday and required ETO with Zyprexa and Ativan. On my examination today, the patient expresses his displeasure at receiving this medication, although he denies side effects from it. He remains floridly psychotic and internally preoccupied. He rambles about [email or web address] and the [employer] as well as [employer] (Closed) and [employer]. Awaiting [address] tomorrow for possible appointment of GA. Review of Systems ROS Limitations: Psychotic, Poor Historian Except as stated in HPI: all other systems reviewed are Neg Objective Alert: Yes [place]: Person, Place Mood: Other (Upset re: ETO) Affect: Restricted (dysphoric) Memory Intact: Comment (Not formally assessed) Hallucinations: Other (Int stim) Delusions: Yes Delusion Type: Paranoid Suicidal: Ideation (No SI) Homicidal: Ideation (No HI) Insight/Judgement Poor Remarks No motor abnormalities noted. Speech rambling. TP somewhat disorganized. Grooming and hygiene fair. Labs Labs reviewed. No new labs. Vitals/IOs Vital Signs Date Time Temp Pulse Resp B/P Pulse Ox O2 Delivery O2 Flow Rate FiO2 08/07/16 06:16 97.4 57 17 106/57 97 Assessment & Plan Problem List: (1) Schizophrenia, paranoid, chronic ICD Code: F20.0 Assessment & Plan [place] [facility] tomorrow. Hoping to get a GA to begin scheduled medications in this patient with decompensated psychosis. Continue to monitor on the inpatient unit in the meantime. Continue other medications and care as ordered. Justification for Cont. Inpt. Impairment in reality construction. Risk for decompensation in a less restrictive environment. Discharge Planning Pending outcome of [address]. Request HC Surrog/Guard Advoc?: Yes Zack Mix MD Aug 07, 2016 10:46
[2016-08-07 18:37] VITALS: BP 110/56; PULSE 78; RESP 16; TEMP 98.5; O2SAT 97
[2016-08-08 06:10] VITALS: BP 114/55; PULSE 59; RESP 16; TEMP 97.3; O2SAT 98
[2016-08-08] MEDS: EUCERIN CREAM 120 GM JAR TOPICAL SCH ×2 (09:00→21:00)
[2016-08-08] MEDS: FOLIC ACID 1 MG TAB PO SCH (09:00)
[2016-08-08] MEDS: THIAMINE HCL 100 MG TAB PO SCH (09:00)
[2016-08-08] MEDS ORDERED: HALOPERIDOL LACTATE 5 MG/ML AMP IM STA (11:50)
--- NOTE | 2016-08-08 11:51 | HHI.PYPN ---
Subjective Remarks Patient seen and case discussed with nursing staff. Patient remains irritable and psychotic. For me today patient says that he is "a medial spirit plus." He insists that he was "deemed fit at 5 facilities." He reiterates that the government has cleared him to carry a knife. His case was presented to the [place] and the patient was retained by the court and a MICHAEL guardian was appointed. Patient did not take this news well and stormed out of court. I received a call a short time later from the unit that the patient is beginning to escalate and was growing agitated and aggressive with staff. I have ordered him medicated with Haldol, Ativan and Benadryl ETO, reportedly to good effect when I check in with the nurse later. Review of Systems ROS Limitations: Psychotic, Poor Historian Except as stated in HPI: all other systems reviewed are Neg Objective Alert: Yes [place]: Person, Place Mood: Agitated, Angry Affect: Restricted (dysphoric) Memory Intact: Comment (Not formally assessed) Hallucinations: Other (Remains int stim) Delusions: Yes Delusion Type: Paranoid (systematized delusions) Suicidal: Ideation (No SI) Homicidal: Ideation (No HI) Insight/Judgement Poor Remarks No new motor abnormalities noted. Speech loud, angry. Grooming and hygiene fair. TP linear within delusional system. Labs Labs reviewed. No new labs. Vitals/IOs Vital Signs Date Time Temp Pulse Resp B/P Pulse Ox O2 Delivery O2 Flow Rate FiO2 08/08/16 06:10 97.3 59 16 114/55 98 Intake and Output 08/07/16 08/07/16 08/08/16 08:00 16:00 00:00 Intake Total 360 ml Balance 360 ml Assessment & Plan Problem List: (1) Schizophrenia, paranoid, chronic ICD Code: F20.0 Assessment & Plan Initiate Haldol 5 mg by mouth twice daily with IM backup should the patient refuse oral Haldol. If well tolerated and efficacious, could consider Haldol Decanoate. Ativan as needed for anxiety and Benadryl as needed for EPS. Continue to monitor on the inpatient unit. Continue other medications and care as ordered. Justification for Cont. Inpt. Impairment in reality construction. Medication changes in process. High risk for decompensation in a less restrictive environment. Discharge Planning Pending psychiatric stabilization. If the patient responds briskly to Haldol and we are able to initiate Haldol Decanoate in short order, the patient might be ready for discharge by as early as the end of next week. I asked the [facility] patient account representative present at court to place patient on the list for FACT team. Request HC Surrog/Guard Advoc?: Yes Zack Mix MD Aug 08, 2016 11:51
[2016-08-08] MEDS ORDERED: LORazepam 2 MG/ML VIAL IM ONE (12:00)
[2016-08-08] MEDS ORDERED: diphenhydrAMINE HCL 50 MG/ML VIAL IM ONE (12:00)
[2016-08-08] MEDS ORDERED: LORazepam 1 MG TAB PO PRN (12:15)
[2016-08-08] MEDS ORDERED: HALOPERIDOL LACTATE 5 MG/ML AMP IM PRN (12:15)
[2016-08-08] MEDS ORDERED: LORazepam 2 MG/ML VIAL IM PRN (12:15)
[2016-08-08 16:26] VITALS: BP 103/57; PULSE 62; RESP 16; TEMP 97.5; O2SAT 99
[2016-08-08] MEDS: HALOPERIDOL 5 MG TAB PO SCH (21:00)
[2016-08-09 06:05] VITALS: BP 116/56; PULSE 54; RESP 18; TEMP 97.7; O2SAT 99
[2016-08-09] MEDS: FOLIC ACID 1 MG TAB PO SCH (09:00)
[2016-08-09] MEDS: THIAMINE HCL 100 MG TAB PO SCH (09:00)
[2016-08-09] MEDS: HALOPERIDOL 5 MG TAB PO SCH ×2 (09:00→21:48)
[2016-08-09] MEDS: EUCERIN CREAM 120 GM JAR TOPICAL SCH ×2 (09:00→21:00)
--- NOTE | 2016-08-09 12:22 | HHI.PYPN ---
Subjective Remarks Patient seen and examined. Chart reviewed. Case discussed with nursing staff who reports patient remains paranoid and bizarre, talking to himself extensively. He threatens to see the hospital. On my examination today, the patient is somewhat calmer and less irritable since starting Haldol. He says "I 'm okay, but I was better without it" referring to the medication. He says "what am going to do is go to CT. I'm going to get the epic kaleidoscope analyst who told me to go to the [facility]." He continues to believe that he is "a medium. I'm connected to all the spirits." Denies side effects from medications. Review of Systems ROS Limitations: Psychotic, Poor Historian Except as stated in HPI: all other systems reviewed are Neg Objective Alert: Yes [place]: Person, Place Mood: Other (calmer but remains irritable) Affect: Restricted (remains fairly dysphoric) Memory Intact: Comment (Not formally assessed) Hallucinations: Other (internally stimulated. Receiving messages from the spirit world.) Delusions: Yes Delusion Type: Paranoid (ongoing systematized delusions of being involved in the government in some way) Suicidal: Ideation (No SI) Homicidal: Ideation (No HI) Insight/Judgement Poor Remarks No motor abnormalities noted, but the patient declines physical examination. Thought process fairly linear within delusional system. Speech a little bit terse but otherwise within normal limits. Grooming and hygiene fair at best. Labs Labs reviewed. No new labs. Vitals/IOs Vital Signs Date Time Temp Pulse Resp B/P Pulse Ox O2 Delivery O2 Flow Rate FiO2 08/09/16 06:05 97.7 54 18 116/56 99 Assessment & Plan Problem List: (1) Schizophrenia, paranoid, chronic ICD Code: F20.0 Assessment & Plan Titrate Haldol over the weekend to a target dose of 10 mg twice a day. If this is well tolerated and helpful, could consider Haldol Decanoate after the weekend. Continue to monitor on the inpatient unit. Continue other medications and care as ordered. Justification for Cont. Inpt. Impairment in reality construction. Concern for impairments in safety. Medication changes and process. High risk for decompensation in a less restrictive environment. Discharge Planning Pending psychiatric stabilization. Request HC Surrog/Guard Advoc?: Yes Zack Mix MD Aug 09, 2016 12:22
[2016-08-09 17:00] VITALS: BP 121/60; PULSE 70; RESP 16; TEMP 98.6
[2016-08-09] MEDS ORDERED: HALOPERIDOL LACTATE 5 MG/ML AMP IM PRN (21:00)
[2016-08-10 06:37] VITALS: BP 105/56; PULSE 61; RESP 18; TEMP 97.6; O2SAT 97
[2016-08-10] MEDS: FOLIC ACID 1 MG TAB PO SCH (09:00)
[2016-08-10] MEDS: EUCERIN CREAM 120 GM JAR TOPICAL SCH ×2 (09:00→20:23)
[2016-08-10] MEDS: THIAMINE HCL 100 MG TAB PO SCH (09:00)
[2016-08-10] MEDS: HALOPERIDOL 5 MG TAB PO SCH ×3 (09:34→20:43)
--- NOTE | 2016-08-10 12:00 | HHI.PYPN ---
Subjective Remarks Pt seen and discussed with staff. Pt remains paranoid and delusional. He is upset over court proceedings and states that he told the court the truth and his ct manager and the legal records clerk were trying to "cover everything up." He states that he is going to "take it to the highest levels". He states that he does not need medications and insists that MD stop all psychiatric medications. When asked about side effects or adverse reactions, pt is evasive and will only respond that he does not need medication. No SI/HI. Review of Systems Psychiatric: COMPLAINS OF: Delusions Objective Alert: Yes [place]: Person, Place, Date ("friday") Mood: Other (suspicious, guarded, irritable) Affect: Restricted (flat) Memory Intact: Comment (Not formally assessed) Hallucinations: Other (internally stimulated. Receiving messages from the spirit world.) Delusions: Yes Delusion Type: Paranoid (persecutory involving government conspiracies) Suicidal: Ideation (denies) Homicidal: Ideation (denies) Insight/Judgement poor Vitals/IOs Vital Signs Date Time Temp Pulse Resp B/P Pulse Ox O2 Delivery O2 Flow Rate FiO2 08/10/16 06:37 97.6 61 18 105/56 97 Assessment & Plan Problem List: (1) Schizophrenia, paranoid, chronic ICD Code: F20.0 Assessment & Plan Continue current tx plan. Estimated LOS: days Justification for Cont. Inpt. impairments in reality testing Request HC Surrog/Guard Advoc?: Yes Karissa Awan MD Aug 10, 2016 12:00
[2016-08-10 17:23] VITALS: BP 129/78; PULSE 71; RESP 18; TEMP 98.2; O2SAT 98
[2016-08-10] MEDS ORDERED: BENZTROPINE MESYLATE 2 MG/2 ML VIAL ONE (20:47)
[2016-08-10] MEDS ORDERED: BENZTROPINE MESYLATE 2 MG/2 ML VIAL IM ONE (21:00)
[2016-08-11 05:54] VITALS: BP 107/56; PULSE 62; RESP 17; TEMP 97.4; O2SAT 97
[2016-08-11] MEDS: EUCERIN CREAM 120 GM JAR TOPICAL SCH ×2 (09:00→20:51)
[2016-08-11] MEDS: THIAMINE HCL 100 MG TAB PO SCH (09:00)
[2016-08-11] MEDS: FOLIC ACID 1 MG TAB PO SCH (09:00)
--- NOTE | 2016-08-11 13:50 | HHI.PYPN ---
Subjective Remarks Pt seen and discussed with staff. Pt experienced EPS after yesterday's nighttime dose of haldol. Pt was given cogentin 2mg IM X1 dose which relieved symptoms. Today, pt denies any recurrence of EPS. He states that he thinks he had EPS in the past with haldol, but it doesn't matter because he is not going to take it again. He states that he has been "cleared by the government" and does not have schizophrenia. He talks at length about how all of the Black people in [place], [place] were trying to kill him but President Grace and the [employer] were following him around and they declared that the pt was in danger and told him to carry a knife on his person at all times for the rest of his life to use for self-defense. He states that he moved to [place] and the exact same thing occurred again. 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 " She said, if you need love, let me love you." He states that he meets regularly with President Grace at his home, but now that President Vinicius has been elected , he is no longer being protected and uses hospitalization as evidence of a greater conspiracy. He then accuses Dr. Mix of having a personal vendetta against him. "I don't like him. He is making this personal. I'm going to take him to the [facility]. My sister is a [facility] nurse coordinator." No SI/HI. Review of Systems Psychiatric: COMPLAINS OF: Anxiety, Delusions Objective Alert: Yes [place]: Person, Place, Date ("friday") Mood: Anxious, Other (suspicious, guarded, irritable) Affect: Restricted (flat), Tearful Memory Intact: Comment (Not formally assessed) Hallucinations: Other (internally stimulated. Receiving messages from the spirit world.) Delusions: Yes Delusion Type: Paranoid (persecutory involving government conspiracies) Suicidal: Ideation (denies) Homicidal: Ideation (denies) Insight/Judgement poor Vitals/IOs Vital Signs Date Time Temp Pulse Resp B/P Pulse Ox O2 Delivery O2 Flow Rate FiO2 08/11/16 05:54 97.4 62 17 107/56 97 Assessment & Plan Problem List: (1) Schizophrenia, paranoid, chronic ICD Code: F20.0 Assessment & Plan Continue hospitalization. Estimated LOS: days Justification for Cont. Inpt. severe impairments in reality construction Request HC Surrog/Guard Advoc?: Yes Karissa Awan MD Aug 11, 2016 13:49
[2016-08-11 18:33] VITALS: BP 106/62; PULSE 72; RESP 18; TEMP 98.5; O2SAT 98
[2016-08-12 05:48] VITALS: BP 110/56; PULSE 62; RESP 18; TEMP 97.8; O2SAT 99
[2016-08-12] MEDS: FOLIC ACID 1 MG TAB PO SCH (09:00)
[2016-08-12] MEDS: THIAMINE HCL 100 MG TAB PO SCH (09:00)
[2016-08-12] MEDS: EUCERIN CREAM 120 GM JAR TOPICAL SCH ×2 (09:00→19:57)
--- NOTE | 2016-08-12 10:47 | HHI.PYPN ---
Subjective Remarks Patient seen and examined. Chart reviewed. Patient apparently had some EPS over the weekend during Haldol titration that responded nicely to Cogentin. However, patient is now refusing to take Haldol. Case discussed with nursing staff who reports patient remains paranoid and bizarre and is fixated on having been "deemed fit." On my examination today, the patient is noticeably calmer with the benefit of antipsychotic therapy through part of the weekend. However , he remains quite psychotic and paranoid with the same delusional themes of being involved somehow in the government. He says that he has no interest in being on Haldol any longer, and we discussed his alternatives. I offer him the other agents for which we have a long-acting injectable. The patient declines Abilify, Risperdal as he has had these in the past, doesn't know about Invega. Willing to try Prolixin, requests liquid formulation. Perseverative on whether medications will cause sexual side effects. I discussed with him the potential concern for hyperprolactinemia with antipsychotic medications. Review of Systems ROS Limitations: Psychotic, Poor Historian Except as stated in HPI: all other systems reviewed are Neg Objective Alert: Yes [place]: Person, Place (at least) Mood: Anxious, Other (remains guarded and somewhat irritable although a little less so versus before the weekend) Affect: Restricted Memory Intact: Comment (Not formally assessed) Hallucinations: Other (internally preoccupied) Delusions: Yes Delusion Type: Paranoid (ongoing paranoia regarding being somehow involved with the government) Suicidal: Ideation (no SI) Homicidal: Ideation (no HI) Insight/Judgement Poor Remarks No current hand tremor, dystonia or dyskinesias noted. No other novel motoric abnormalities. Patient continues to walk with a limp. Grooming and hygiene fair at best. Speech rambling. Thought process fairly linear within delusional system. Labs Labs reviewed Vitals/IOs Vital Signs Date Time Temp Pulse Resp B/P Pulse Ox O2 Delivery O2 Flow Rate FiO2 08/12/16 05:48 97.8 62 18 110/56 99 Assessment & Plan Problem List: (1) Schizophrenia, paranoid, chronic ICD Code: F20.0 Assessment & Plan Discontinue Haldol and replace with Prolixin liquid, 5 mg twice daily. I will go ahead and order prophylactic Cogentin 1 mg twice daily. Plan for Prolixin Decanoate so long as this is well tolerated and efficacious. Continue to monitor on the inpatient unit. Continue other medications and care as ordered. Justification for Cont. Inpt. Impairment in reality construction. Medication changes and process. Risk for decompensation pending psychiatric stabilization. Discharge Planning Pending psychiatric stabilization Request HC Surrog/Guard Advoc?: Yes Zack Mix MD Aug 12, 2016 10:47
[2016-08-12 18:00] VITALS: BP 116/63; PULSE 77; RESP 16; TEMP 98.4; O2SAT 97
[2016-08-12] MEDS: fluPHENAZine HCL ELIXIR 2.5 MG/5 ML UDC PO SCH ×2 (19:57→20:57)
[2016-08-12] MEDS: BENZTROPINE MESYLATE 1 MG TAB PO SCH (19:58)
[2016-08-13 05:55] VITALS: BP 134/60; PULSE 56; RESP 18; TEMP 97.6; O2SAT 98
[2016-08-13] MEDS: FOLIC ACID 1 MG TAB PO SCH (08:27)
[2016-08-13] MEDS: THIAMINE HCL 100 MG TAB PO SCH (08:27)
[2016-08-13] MEDS: EUCERIN CREAM 120 GM JAR TOPICAL SCH ×2 (09:00→20:14)
[2016-08-13] MEDS: BENZTROPINE MESYLATE 1 MG TAB PO SCH ×2 (10:06→20:14)
[2016-08-13] MEDS: fluPHENAZine HCL ELIXIR 2.5 MG/5 ML UDC PO SCH ×2 (10:07→20:14)
--- NOTE | 2016-08-13 12:14 | HHI.PYPN ---
Subjective Remarks Patient seen and examined with nurse. Chart reviewed. Case discussed in treatment team with nurse, counselor and occupational therapist. Per nursing staff, patient has been keeping a generally low profile. No evidence of any EPS per nurse. On my examination today, the patient seems genuinely calm and pleasant. He is much more reasonable than in previous days. He says that he is catching up on rest. He denies any side effects from medications. He does not volunteer any of his psychotic material, as he has in the recent past, but when asked continues to say that he has been allowed by the government to carry a knife. He now denies that he would use this knife against anyone else saying that instead he would use it to cut his meat. Review of Systems Except as stated in HPI: all other systems reviewed are Neg Objective Alert: Yes [place]: Person, Place Mood: Calm Affect: Blunted Memory Intact: Comment (Not formally assessed) Hallucinations: Other (Less int stim) Delusions: Yes Delusion Type: Paranoid (does not volunteer paranoia) Suicidal: Ideation (no SI) Homicidal: Ideation (no HI) Insight/Judgement Poor Remarks Patient allows me to physically examined him today. No hand tremor, no cogwheeling, no hypomimia, no dystonia, no dyskinesia with Prolixin + Cogentin. Thought process linear. Speech wnl for rate, tone, volume. Labs Labs reviewed. No new labs. Vitals/IOs Vital Signs Date Time Temp Pulse Resp B/P Pulse Ox O2 Delivery O2 Flow Rate FiO2 08/13/16 05:55 97.6 56 18 134/60 98 Assessment & Plan Problem List: (1) Schizophrenia, paranoid, chronic ICD Code: F20.0 Assessment & Plan Continue Prolixin as ordered. If this remains well tolerated, we'll plan to administer Prolixin Decanoate. Continue Cogentin. Continue to monitor on the high acuity unit. Continue other medications and care as ordered. Justification for Cont. Inpt. Impairment in reality construction. High risk for decompensation pending further psychiatric stabilization. Discharge Planning High risk for decompensation pending further psychiatric stabilization. Request HC Surrog/Guard Advoc?: Yes Zack Mix MD Aug 13, 2016 12:14
[2016-08-13 17:46] VITALS: BP_SYST 117; BP_SYST 125; BP_DIAS 58; BP_DIAS 77; PULSE 104; RESP 17; RESP 18; TEMP 98.3; O2SAT 100; O2SAT 98
[2016-08-14 06:15] VITALS: BP 109/58; PULSE 59; RESP 18; TEMP 97.9; O2SAT 99
[2016-08-14] MEDS: FOLIC ACID 1 MG TAB PO SCH ×2 (08:38→09:00)
[2016-08-14] MEDS: BENZTROPINE MESYLATE 1 MG TAB PO SCH ×2 (08:38→20:28)
[2016-08-14] MEDS: EUCERIN CREAM 120 GM JAR TOPICAL SCH ×2 (08:38→20:28)
[2016-08-14] MEDS: THIAMINE HCL 100 MG TAB PO SCH ×2 (08:38→09:00)
[2016-08-14] MEDS: fluPHENAZine HCL ELIXIR 2.5 MG/5 ML UDC PO SCH ×2 (08:39→20:29)
--- NOTE | 2016-08-14 10:14 | HHI.PYPN ---
Subjective Remarks Patient seen and examined with nurse. Chart reviewed. Case discussed with nursing staff. No reported behavioral problems. On my examination today, the patient is calm and pleasant. He says that he is "relaxing after eating food." He does not volunteer any psychotic material. He denies any AVH. No SI or HI. He denies side effects from medications and is agreeable to receiving Prolixin Decanoate today. Review of Systems ROS Limitations: Poor Historian Except as stated in HPI: all other systems reviewed are Neg Objective Alert: Yes [place]: Person, Place Mood: Calm Affect: Blunted Memory Intact: Comment (seems fair on clinical exam) Hallucinations: Other (no AVH) Delusions: No Delusion Type: Other (suspect some degree of underlying paranoia, but the patient does not verbalize it today.) Suicidal: Ideation (no SI) Homicidal: Ideation (no HI) Insight/Judgement Poor Remarks No motor abnormalities noted. No signs of any EPS. Thought process more linear and logical. Grooming and hygiene fair. Labs Labs reviewed. Vitals/IOs Vital Signs Date Time Temp Pulse Resp B/P Pulse Ox O2 Delivery O2 Flow Rate FiO2 08/14/16 06:15 97.9 59 18 109/58 99 Assessment & Plan Problem List: (1) Schizophrenia, paranoid, chronic ICD Code: F20.0 Assessment & Plan Administer Prolixin Decanoate 12.5 mg IM today. Continue oral Prolixin supplementation. Prolixin liquid was not available from the pharmacy this morning and so I have ordered a single dose of Prolixin tab. Continue Cogentin. Continue to monitor on the inpatient unit. Continue other medications and care as ordered. Justification for Cont. Inpt. Monitor overnight. Possible discharge tomorrow. Discharge Planning Possible discharge tomorrow if the patient is tolerating the Prolixin Decanoate well and continues to do well from a psychiatric standpoint. Request HC Surrog/Guard Advoc?: Yes Zack Mix MD Aug 14, 2016 10:14
[2016-08-14 17:58] VITALS: BP 113/56; PULSE 66; RESP 16; TEMP 98.5; O2SAT 97
[2016-08-15 05:45] VITALS: BP 131/67; PULSE 58; RESP 18; TEMP 98.1; O2SAT 98
[2016-08-15] MEDS: EUCERIN CREAM 120 GM JAR TOPICAL SCH (09:00)
[2016-08-15] MEDS: THIAMINE HCL 100 MG TAB PO SCH (09:00)
[2016-08-15] MEDS: FOLIC ACID 1 MG TAB PO SCH (09:00)
[2016-08-15] MEDS: fluPHENAZine HCL ELIXIR 2.5 MG/5 ML UDC PO SCH (09:04)
[2016-08-15] MEDS: BENZTROPINE MESYLATE 1 MG TAB PO SCH (09:04)
[2016-08-15] MEDS ORDERED: FLUP1INJ IM (10:21)
[2016-08-15] MEDS ORDERED: BENZ1TAB PO (10:21)
[2016-08-15] MEDS ORDERED: FLUPH2.5S PO (10:21)
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
== END 2016-08-15 13:05 | disposition home or self-care (01) | DRG 885 ==
LOC: NEPA 10:42 → NEDA 14:50 → H270 19:40
PROVIDERS: ADMIT Psychiatry & Neurology Psychiatry; ATTEND Psychiatry & Neurology Psychiatry
DX: F20.0 Paranoid schizophrenia (principal)
CPT/HCPCS: 80053; 80061; 80307; 83036; 85025; 99285; J0515; J1200; J1630; J2060; J2680; Q0163

== ENCOUNTER 2016-08-20 07:29 | Emergency (ER) | payer OTHER ==
[~2016-08-20] VITALS: Ht 172.7 cm; Wt 70.0 kg
[~2016-08-20 07:29] MED LIST: BENZ1TAB PO; FLUP1INJ IM; FLUPH2.5S PO
--- NOTE | 2016-08-20 07:50 | PD ---
HPI Chief Complaint: Gaffney act Time Seen by Provider: 07:40 Travel History International Travel<30 days: No Contact w/Intl Traveler<30days: No Traveled to known affect area: No History of Present Illness HPI The patient is a 46-year-old male who presents to the emergency department via police department as a Gaffney act. According to the police the patient called the police stated that he had a government issued weapon, a pocket knife, he was going to kill people. The patient states he does have a government issued weapon and tape recorder because there are multiple people trying to kill him in different states. The patient also admits to alcohol ingestion and the use of marijuana. The patient states she has been diagnosed with schizophrenia, however, does not have. Schizophrenia and has not been taking his Prolixin. The patient denies any physical complaints including chest pain, shortness breath, nausea, vomiting, or abdominal pain. The patient states that his tape recorder his voice activated. He denies any auditory or visual hallucinations. Symptoms are moderate, possibly exacerbated by history of schizophrenia, and there are no current alleviating factors. PFSH Past Medical History Cardiovascular Problems: Yes (HX [place]/REFUSES ASSESSMENT ) Musculoskeletal: Yes (UNSTEADY GAIT/BILATERAL LEG DEFORMITY OBSERVED) Psychiatric: Yes (Pt reported hx of psychiatric treatment but did not provide diagnosis) Myocardial Infarction: Yes Past Surgical History Abdominal Surgery: Yes (hernia) Social History Alcohol Use: Yes (often) Tobacco Use: No Allergies-Medications (Allergen,Severity, Reaction): Coded Allergies: Mushroom (Verified Allergy, Unknown, 08/20/16) Penicillin (Verified Allergy, Unknown, 05/25/16) Haldol (Verified Adverse Reaction, Intermediate, EPS, 08/12/16) Responded nicely to Cogentin IM. Should not be a barrier to use in emergency if coadministered with Cogentin, Benadryl, etc. Reported Meds & Prescriptions Reported Meds & Active Scripts Active Fluphenazine Decanoate Inj (Fluphenazine Decanoate) 125 Mg/5 Ml Inj 12.5 Mg IM Q21D This dose of fluphenazine decanoate is due on 09/04/2016. Benztropine (Benztropine Mesylate) 1 Mg Tab 1 Mg PO Q12HR 21 Days Fluphenazine Liq (Fluphenazine HCl) 2.5 Mg/5 Ml Elx 2.5 Mg PO BID 21 Days Continue taking oral fluphenazine as directed until gone or as directed by your outpatient provider. Make sure to get your next fluphenazine decanoate injection. Review of Systems Except as stated in HPI: all other systems reviewed are Neg General / Constitutional: No: Fever Cardiovascular: No: Chest Pain or Discomfort Respiratory: No: Shortness of Breath Gastrointestinal: No: Nausea, Vomiting, Abdominal Pain Psychiatric: Positive: Disorder of Thought, Substance Abuse (occasional marijuana and alcohol use), Homicidal Ideation (according to the police was making comments is going to kill people, but patient denies), No: Suicidal Ideations Physical Exam Narrative GENERAL: Awake, alert, pleasant 46-year-old male who appears his stated age and is in no acute respiratory distress. SKIN: Focused skin assessment warm/dry. Sunburn over the posterior aspect the ears and neck. HEAD: Atraumatic. Normocephalic. EYES: Pupils equal and round. Pupils are 3 mm bilateral. Right exotropia. Bilateral injection. ENT: No nasal bleeding or discharge. Mucous membranes pink and moist. NECK: Trachea midline. No JVD. CARDIOVASCULAR: Regular rate and rhythm. No murmur appreciated. RESPIRATORY: No accessory muscle use. Clear to auscultation. Breath sounds equal bilaterally. GASTROINTESTINAL: Abdomen soft, non-tender, nondistended. Hepatic and splenic margins not palpable. MUSCULOSKELETAL: Hand to the right foot.. NEUROLOGICAL: Awake and alert. No obvious cranial nerve deficits. Motor grossly within normal limits. Normal speech. Nonfocal. 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 PSYCHIATRIC: Appears paranoid. Data Data Last Documented VS Vital Signs Date Time Temp Pulse Resp B/P Pulse Ox O2 Delivery O2 Flow Rate FiO2 08/20/16 08:00 85 08/20/16 08:00 98.2 18 132/84 97 Room Air Orders Complete Blood Count With Diff (08/20/16 07:46) Comprehensive Metabolic Panel (08/20/16 07:46) Psych Screen (08/20/16 07:46) Drug Screen, Random Urine (08/20/16 07:46) Alcohol (Ethanol) (08/20/16 07:46) Labs Laboratory Tests Test 08/20/16 07:50 White Blood Count 6.9 TH/MM3 Red Blood Count 4.39 MIL/MM3 Hemoglobin 13.5 GM/DL Hematocrit 38.6 % Mean Corpuscular Volume 87.9 FL Mean Corpuscular Hemoglobin 30.7 PG Mean Corpuscular Hemoglobin 34.9 % Concent Red Cell Distribution Width 12.9 % Platelet Count 340 TH/MM3 Mean Platelet Volume 7.7 FL Neutrophils (%) (Auto) 60.9 % Lymphocytes (%) (Auto) 26.9 % Monocytes (%) (Auto) 8.8 % Eosinophils (%) (Auto) 2.6 % Basophils (%) (Auto) 0.8 % Neutrophils # (Auto) 4.2 TH/MM3 Lymphocytes # (Auto) 1.9 TH/MM3 Monocytes # (Auto) 0.6 TH/MM3 Eosinophils # (Auto) 0.2 TH/MM3 Basophils # (Auto) 0.1 TH/MM3 CBC Comment DIFF FINAL Differential Comment Sodium Level 140 MEQ/L Potassium Level 3.7 MEQ/L Chloride Level 105 MEQ/L Carbon Dioxide Level 26.0 MEQ/L Anion Gap 9 MEQ/L Blood Urea Nitrogen 17 MG/DL Creatinine 0.70 MG/DL Estimat Glomerular Filtration 123 ML/MIN Rate Random Glucose 96 MG/DL Calcium Level 8.8 MG/DL Total Bilirubin 0.4 MG/DL Aspartate Amino Transf 16 U/L (AST/SGOT) Alanine Aminotransferase 28 U/L (ALT/SGPT) Alkaline Phosphatase 73 U/L Total Protein 7.5 GM/DL Albumin 3.5 GM/DL Ethyl Alcohol Level LESS THAN 3 MG/DL MDM Medical Decision Making Medical Screen Exam Complete: Yes Emergency Medical Condition: Yes Medical Record Reviewed: Yes Interpretation(s) Laboratory Tests Test 08/20/16 07:50 White Blood Count 6.9 TH/MM3 Red Blood Count 4.39 MIL/MM3 Hemoglobin 13.5 GM/DL Hematocrit 38.6 % Mean Corpuscular Volume 87.9 FL Mean Corpuscular Hemoglobin 30.7 PG Mean Corpuscular Hemoglobin 34.9 % Concent Red Cell Distribution Width 12.9 % Platelet Count 340 TH/MM3 Mean Platelet Volume 7.7 FL Neutrophils (%) (Auto) 60.9 % Lymphocytes (%) (Auto) 26.9 % Monocytes (%) (Auto) 8.8 % Eosinophils (%) (Auto) 2.6 % Basophils (%) (Auto) 0.8 % Neutrophils # (Auto) 4.2 TH/MM3 Lymphocytes # (Auto) 1.9 TH/MM3 Monocytes # (Auto) 0.6 TH/MM3 Eosinophils # (Auto) 0.2 TH/MM3 Basophils # (Auto) 0.1 TH/MM3 CBC Comment DIFF FINAL Differential Comment Sodium Level 140 MEQ/L Potassium Level 3.7 MEQ/L Chloride Level 105 MEQ/L Carbon Dioxide Level 26.0 MEQ/L Anion Gap 9 MEQ/L Blood Urea Nitrogen 17 MG/DL Creatinine 0.70 MG/DL Estimat Glomerular Filtration 123 ML/MIN Rate Random Glucose 96 MG/DL Calcium Level 8.8 MG/DL Total Bilirubin 0.4 MG/DL Aspartate Amino Transf 16 U/L (AST/SGOT) Alanine Aminotransferase 28 U/L (ALT/SGPT) Alkaline Phosphatase 73 U/L Total Protein 7.5 GM/DL Albumin 3.5 GM/DL Ethyl Alcohol Level LESS THAN 3 MG/DL Differential Diagnosis Differential diagnosis includes paranoid schizophrenia, psychosis, substance induced mood disorder, bipolar affective disorder. Narrative Course Labs were drawn and sent. Psychiatric evaluation was ordered. Labs are unremarkable. The patient is medically clear to be evaluated by psychiatry. Disposition as per psych. Diagnosis Primary Impression: Schizophrenia, paranoid, chronic Condition: Stable Matthew Hodge MD Aug 20, 2016 07:50
[2016-08-20 07:59] VITALS: BP 132/84; PULSE 81; RESP 18; TEMP 98.3; O2SAT 97
[2016-08-20 08:00] VITALS: BP 132/84; PULSE 83; RESP 18; TEMP 98.2; O2SAT 97
[2016-08-20 08:10] LABS: AUTOMATED NEUTROPHIL # 4.2 TH/MM3 (1.8-7.7); BASOPHIL # 0.1 TH/MM3 (0-0.2); BASOPHIL % 0.8 % (0.0-2.0); EOSINOPHIL # 0.2 TH/MM3 (0-0.4); EOSINOPHIL % 2.6 % (0.0-4.0); HEMATOCRIT 38.6 % (39.0-51.0); HEMO FLAGS DIFF FINAL; LYMPH % 26.9 % (9.0-44.0); LYMPHOCYTE # 1.9 TH/MM3 (1.0-4.8); MEAN CELL VOLUME 87.9 FL (80.0-100.0); MEAN CORPUSCULAR HEMOGLOBIN 30.7 PG (27.0-34.0); MEAN CORPUSCULAR HGB CONC 34.9 % (32.0-36.0); MONO % 8.8 % (0.0-8.0); NEUT % 60.9 % (16.0-70.0); PLATELET COUNT 340 TH/MM3 (150-450); RED BLOOD COUNT 4.39 MIL/MM3 (4.50-5.90); RED CELL DISTRIBUTION WIDTH 12.9 % (11.6-17.2); WHITE BLOOD COUNT 6.9 TH/MM3 (4.0-11.0)
[2016-08-20 08:23] LABS: ANION GAP 9 MEQ/L (5-15)
[2016-08-20 08:27] LABS: ALKALINE PHOSPHATASE 73 U/L (45-117); ALT (GPT) 28 U/L (12-78); AST (GOT) 16 U/L (15-37); BLOOD UREA NITROGEN 17 MG/DL (7-18); CHLORIDE 105 MEQ/L (98-107); GLOMERULAR FILTRATION RATE 123 ML/MIN (>89); POTASSIUM 3.7 MEQ/L (3.5-5.1); SODIUM (NA) 140 MEQ/L (136-145); TOTAL BILIRUBIN ADULT 0.4 MG/DL (0.2-1.0)
[2016-08-20 10:03] LABS: AMPHETAMINE, URINE NEG (NEG); BARBITURATES, URINE NEG (NEG); COCAINE, URINE NEG (NEG)
[2016-08-20 10:32] VITALS: BP 121/72; PULSE 67; RESP 18; O2SAT 97
[2016-08-20 12:37] VITALS: BP 111/63; PULSE 64; RESP 18; O2SAT 98
[2016-08-20 15:24] VITALS: BP 106/50; PULSE 68; RESP 18; TEMP 99.3; O2SAT 100
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
== END 2016-08-20 18:48 | disposition home or self-care (01) ==
LOC: NEPE 07:29 → NEPJ 18:48
DX: F20.0 Paranoid schizophrenia (principal); I25.2 Old myocardial infarction; Z86.79 Personal history of other diseases of the circulatory system; Z87.39 Personal history of other diseases of the musculoskeletal system and connective tissue; Z86.59 Personal history of other mental and behavioral disorders
CPT/HCPCS: 80053; 80307; 85025; 99283

== ENCOUNTER 2016-11-19 06:34 | Emergency (ER) | payer OTHER ==
[~2016-11-19] VITALS: Ht 172.7 cm; Wt 68.2 kg
[2016-11-19 06:44] VITALS: BP 131/72; PULSE 54; RESP 18; TEMP 98.4; O2SAT 100
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
[2016-11-19 07:48] LABS: AUTOMATED NEUTROPHIL # 10.4 TH/MM3 (1.8-7.7); BASOPHIL # 0.1 TH/MM3 (0-0.2); BASOPHIL % 0.4 % (0.0-2.0); EOSINOPHIL % 0.3 % (0.0-4.0); HEMATOCRIT 40.6 % (39.0-51.0); HEMO FLAGS DIFF FINAL; LYMPHOCYTE # 1.4 TH/MM3 (1.0-4.8); MEAN CELL VOLUME 89.9 FL (80.0-100.0); MEAN CORPUSCULAR HEMOGLOBIN 29.9 PG (27.0-34.0); MEAN CORPUSCULAR HGB CONC 33.2 % (32.0-36.0); MONO % 4.1 % (0.0-8.0); NEUT % 84.2 % (16.0-70.0); PLATELET COUNT 316 TH/MM3 (150-450); RED BLOOD COUNT 4.51 MIL/MM3 (4.50-5.90); RED CELL DISTRIBUTION WIDTH 12.9 % (11.6-17.2); WHITE BLOOD COUNT 12.4 TH/MM3 (4.0-11.0)
[2016-11-19 08:05] LABS: BACTERIA, URINE MANY /hpf; BLOOD, URINE LARGE (NEG); CALCIUM OXALATE CRYSTALS,URINE OCC /hpf; COMMENT (UR) CULTURE INDICATED; CULTURE IF INDICATED CULTURE INDICATED; GLUCOSE,URINE NEG (NEG); KETONE, URINE NEG (NEG); MUCUS URINE MANY /lpf (OCC); NITRITE,URINE NEG (NEG); SQUAMOUS EPITHELIAL CELL URINE 4 /hpf (0-5); URINE COLOR RED (YELLW/STRAW)
[2016-11-19 08:07] LABS: BICARBONATE 26.6 MEQ/L (21.0-32.0); POTASSIUM 3.4 MEQ/L (3.5-5.1)
[2016-11-19 10:18] VITALS: BP 113/64; PULSE 64; RESP 14; O2SAT 99
== END 2016-11-19 11:39 | disposition home or self-care (01) ==
LOC: NEPE 06:34
DX: R31.9 Hematuria, unspecified (principal)
CPT/HCPCS: 80048; 81001; 85025; 86403; 87086; 99283

== ENCOUNTER 2017-01-11 11:32 | Emergency (ER) | payer OTHER ==
[~2017-01-11] VITALS: Ht 180.3 cm; Wt 75.0 kg
[2017-01-11 11:38] VITALS: BP 103/55; PULSE 84; RESP 17
[2017-01-11 11:43] VITALS: BP 103/55; PULSE 73; RESP 17; O2SAT 99
[2017-01-11] MEDS ORDERED: THIAMINE INJ 100 MG in SODIUM CHLORIDE 0.9% INJ 100 ML IV ONE (11:45)
[2017-01-11] MEDS ORDERED: SODIUM CHLOR 0.9% 1000 ML INJ 1,000 ML IV ONE ×2 (11:45→13:00)
[2017-01-11 11:47] VITALS: BP 103/55; PULSE 72; RESP 17; O2SAT 97
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
[2017-01-11 12:11] LABS: AUTOMATED NEUTROPHIL # 5.3 TH/MM3 (1.8-7.7); BASOPHIL # 0.1 TH/MM3 (0-0.2); BASOPHIL % 0.7 % (0.0-2.0); EOSINOPHIL # 0.2 TH/MM3 (0-0.4); EOSINOPHIL % 2.8 % (0.0-4.0); HEMATOCRIT 37.2 % (39.0-51.0); HEMO FLAGS DIFF FINAL; LYMPHOCYTE # 2.5 TH/MM3 (1.0-4.8); MEAN CELL VOLUME 90.8 FL (80.0-100.0); MEAN CORPUSCULAR HEMOGLOBIN 30.2 PG (27.0-34.0); MEAN CORPUSCULAR HGB CONC 33.3 % (32.0-36.0); MONO % 7.7 % (0.0-8.0); NEUT % 59.8 % (16.0-70.0); PLATELET COUNT 460 TH/MM3 (150-450); RED CELL DISTRIBUTION WIDTH 13.2 % (11.6-17.2); WHITE BLOOD COUNT 8.8 TH/MM3 (4.0-11.0)
[2017-01-11 12:49] LABS: ALT (GPT) 24 U/L (12-78); ANION GAP 11 MEQ/L (5-15); AST (GOT) 14 U/L (15-37); BICARBONATE 24.7 MEQ/L (21.0-32.0); BLOOD UREA NITROGEN 10 MG/DL (7-18); CHLORIDE 107 MEQ/L (98-107); GLOMERULAR FILTRATION RATE 131 ML/MIN (>89); POTASSIUM 3.7 MEQ/L (3.5-5.1); SODIUM (NA) 143 MEQ/L (136-145)
[2017-01-11 12:51] LABS: ALKALINE PHOSPHATASE 67 U/L (45-117); CREATINE KINASE 129 U/L (39-308); TOTAL BILIRUBIN ADULT 0.2 MG/DL (0.2-1.0)
[2017-01-11 12:58] LABS: ALCOHOL 266 MG/DL (0-5)
[2017-01-11 16:30] VITALS: BP 110/79; PULSE 79
--- NOTE | 2017-01-11 17:23 | EKG ---
Date Performed: 01/11/2017 Time Performed: 11:44:03 PTAGE: 46 years EKG: Sinus rhythm POSSIBLE RIGHT VENTRICULAR CONDUCTION DELAY BORDERLINE ECG NO PREVIOUS TRACING DOCTOR: Rick Matute Interpretating Date/Time 01/11/2017 17:23:25
== END 2017-01-11 21:52 | disposition home or self-care (01) ==
LOC: NEPD 11:32
DX: F10.920 Alcohol use, unspecified with intoxication, uncomplicated (principal); I25.2 Old myocardial infarction; Y90.8 Blood alcohol level of 240 mg/100 ml or more
CPT/HCPCS: 80053; 80307; 82550; 85025; 93005; 96361; 96365; 99284; J3411; J7030

== ENCOUNTER 2017-08-30 22:35 | Emergency (ER) | payer OTHER ==
[2017-08-30 22:45] VITALS: BP 160/89; PULSE 85; RESP 19; TEMP 98.1; O2SAT 100
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
== END 2017-08-31 08:54 | disposition home or self-care (01) ==
LOC: NEPD 22:35
DX: F10.129 Alcohol abuse with intoxication, unspecified (principal); S50.312A Abrasion of left elbow, initial encounter; R22.32 Localized swelling, mass and lump, left upper limb; I25.2 Old myocardial infarction; Z87.39 Personal history of other diseases of the musculoskeletal system and connective tissue; Z86.59 Personal history of other mental and behavioral disorders; V09.9XXA Pedestrian injured in unspecified transport accident, initial encounter; Y93.01 Activity, walking, marching and hiking; Y92.488 Other paved roadways as the place of occurrence of the external cause
CPT/HCPCS: 73080; 99283